=== PATIENT | female | born 1975 | race Caucasian/White ===

== ENCOUNTER 2017-05-03 08:08 | Emergency (ER) | payer BC ==
[~2017-05-03] VITALS: Ht 172.7 cm; Wt 62.6 kg
[~2017-05-03 08:08] MED LIST: ACIDOPHILUS1 EAC5 PO; ENDOCET 5-3251 EACH PO; FLOVENT 22120 INHALA IH; FLOVENT 44120 INHALA IH; IBUPROFEN800 MG PO; PAIN RELIEVER500 MG PO; PRENATAL TABLE1 EAC3 PO; VENTOLIN HFA18 GM IH
[2017-05-03 09:03] LABS: HEMATOCRIT 43.7 % (36.0-46.0); MCH 29.7 PG (29.0-34.0); MCV 90.1 FL (83-99); MEAN PLAT.VOLUME 10.6 uM^3 (9.5-12.4); PLATELET COUNT 323 K/uL (156-360); RBC DIS.WIDTH-CV 12.2 % (11.8-14.6); RBC DIS.WIDTH-SD 40.6 % (39-53); RED BLOOD COUNT 4.85 M/uL (3.80-5.20); WHITE BLOOD COUNT 11.6 K/uL (4.1-10.2)
[2017-05-03 09:16] LABS: CHLORIDE 106 mEq/L (99-109); POTASSIUM 4.5 mEq/L (3.7-5.4); SODIUM 139 mEq/L (136-147)
[2017-05-03 09:17] LABS: GLUCOSE 95 mg/dL (70-99)
[2017-05-03 09:19] LABS: ANION GAP 9 MEQ/L (2-14)
[2017-05-03 09:21] LABS: GFR ESTIMATE (CALCULATED) > 59 mL/min/
[2017-05-03 09:22] LABS: UREA NITROGEN (BUN) 14 mg/dL (9-23)
[2017-05-03] MEDS ORDERED: MEDROL DOSEPAK4 MG PO (10:13)
[2017-05-03] MEDS ORDERED: NAPROSYN500 MG PO (10:13)
[2017-05-03 10:20] VITALS: BP 137/89
== END 2017-05-03 10:22 | disposition home or self-care (01) ==
LOC: EME 08:08
PROVIDERS: Emergency Medicine
DX: S16.1XXA Strain of muscle, fascia and tendon at neck level, initial encounter (principal); J06.9 Acute upper respiratory infection, unspecified; R59.1 Generalized enlarged lymph nodes; R51 Headache; R20.0 Anesthesia of skin
CPT/HCPCS: 70450; 70486; 72125; 80048; 85027; 99281; 99283; J1100